=== PATIENT | male | born 1975 | race African-American/Black ===

== ENCOUNTER 2017-02-18 22:08 | Emergency (ER) | payer MEDICARE, OTHER ==
[2017-02-18 22:22] VITALS: BP 139/72; PULSE 79; RESP 18; TEMP 98.6
--- NOTE | 2017-02-18 22:45 | ED ---
Upper Extremity HPI - General Chief Complaint: Extremity Injury, Upper Stated Complaint: Swollen Hand Time Seen by Provider: 02/18/17 22:25 Source: patient, family, RN notes reviewed, old records reviewed Mode of arrival: ambulatory Limitations: no limitations - History of Present Illness Initial Comments: 41-year-old male presents with right wrist pain. Patient reports he noticed bumps deformity seen earlier today. He reports whenever flexes her son is resting feels a clicking sensation and feels a bump get worse. Patient states that if he pressed very has a shooting pain up his wrist. Patient denies any falls or trauma. Patient states that he has not no numbness or chilling to the fingers.Patient denies any recent fever, chills, shortness of breath, chest pain , back pain, abdominal pain, nausea vomiting, numbness or tingling, dysuria or hematuria, constipation or diarrhea, headaches or visual changes, or any other current symptoms - Related Data Home Medications Medication Instructions Recorded Confirmed Omeprazole [PriLOSEC] 20 mg PO AC-BRKFST 02/18/17 02/18/17 metFORMIN HCL [Glucophage Xr] 500 mg PO BID 02/18/17 02/18/17 Previous Rx's Medication Instructions Recorded Famotidine [Pepcid] 20 mg PO DAILY #14 tablet 05/29/16 Allergies Allergy/AdvReac Type Severity Reaction Status Date / Time No Known Allergies Allergy Verified 02/18/17 22:22 Review of Systems ROS Statement: Those systems with pertinent positive or pertinent negative responses have been documented in the HPI. ROS Other: All systems not noted in ROS Statement are negative. Past Medical History Past Medical History: Hypertension Additional Past Medical History / Comment(s): back pain, borderline diabetic, sleep apnea History of Any Multi-Drug Resistant Organisms: None Reported Past Surgical History: Orthopedic Surgery Past Psychological History: No Psychological Hx Reported Smoking Status: Never smoker Past Alcohol Use History: None Reported Past Drug Use History: None Reported General Exam - General Exam Comments Initial Comments: Well-appearing 41-year-old male. No distress. Limitations: no limitations General appearance: alert, in no apparent distress Head exam: Present: atraumatic, normocephalic, normal inspection Eye exam: Present: normal appearance, PERRL, EOMI. Absent: scleral icterus, conjunctival injection, periorbital swelling ENT exam: Present: normal exam, mucous membranes moist Neck exam: Present: normal inspection. Absent: tenderness, meningismus, lymphadenopathy Respiratory exam: Present: normal lung sounds bilaterally. Absent: respiratory distress, wheezes, rales, rhonchi, stridor Cardiovascular Exam: Present: regular rate, normal rhythm, normal heart sounds. Absent: systolic murmur, diastolic murmur, rubs, gallop, clicks GI/Abdominal exam: Present: soft Extremities exam: Present: normal inspection, full ROM, normal capillary refill. Absent: tenderness, pedal edema, joint swelling, calf tenderness Right Elbow exam: Present: normal inspection, full ROM Forearm Wrist exam: Present: normal inspection, full ROM Hand Wrist exam: Present: normal inspection, full ROM, tenderness (minor swelling and tenderness over right wrist ) Neuro motor exam: Present: wrist extension intact, thumb opposition intact, thumb IP flexion intact, thumb adduction intact, fingers 2-5 abduction intact Vascular: Present: normal capillary refill Right Upper Leg exam: Present: normal inspection, full ROM Knee exam: Present: normal inspection, full ROM Lower Leg exam: Present: normal inspection, full ROM Foot/Toe exam: Present: normal inspection Back exam: Present: full ROM Neurological exam: Present: alert, oriented X3, CN II-XII intact Psychiatric exam: Present: normal affect, normal mood Course Vital Signs 02/18/17 22:20 Temperature 98.6 F Pulse Rate 79 Respiratory 18 Rate Blood Pressure 139/72 O2 Sat by Pulse 99 Oximetry Medical Decision Making - Medical Decision Making 41-year-old male with a bump over his right wrist and some pain with flexion and extension. Patient reports that symptoms started one day ago. Denies any falls or trauma to the wrist. Patient has evidence of what appears to be again Lantus over the wrist. X-rays reviewed negative for any acute process. Patient will be given an Jnog wrap. Discussed follow-up with orthopedic physician. Patient history plan will comply. Return parameters were discussed. - Radiology Data Radiology results: report reviewed Wrist x-rays reviewed negative for any acute process. Disposition Clinical Impression: Ganglion cyst of dorsum of right wrist Disposition: HOME SELF-CARE Condition: Good Instructions: Ganglion Cysts (ED) Additional Instructions: Patient advised to take Motrin or Tylenol for pain. Apply ice over the wrist is much as possible. Wear the Jong wrap. Follow-up with orthopedic if symptoms continue to persist. Return to emergency department if any alarming signs or symptoms occur. Referrals: Nonstaff,Physician [Primary Care Provider] - 1-2 days Lm Ibarra DO [Doctor of Osteopathic Medicine] - 1-2 days Time of Disposition: 22:57
--- NOTE | 2017-02-18 23:20 | XR ---
EXAM: XR Right Wrist Complete, 3 or More Views CLINICAL HISTORY: Reason: Pain TECHNIQUE: Frontal, lateral and oblique views of the right wrist. COMPARISON: No relevant prior studies available. FINDINGS: Bones/joints: Mild degenerative changes are seen. No acute fracture. No dislocation. Soft tissues: Mild soft tissue swelling is seen overlying the dorsal aspect of the wrist. No radiopaque foreign body. IMPRESSION: Mild soft tissue swelling overlying the dorsal aspect of the wrist. No radiographic evidence of acute osseous injury. If occult fracture is suspected, radiographs of the wrist in 10-14 days may be obtained for follow-up.
== END 2017-02-18 23:08 | disposition home or self-care (01) ==
LOC: EC 22:08
DX: M67.431 Ganglion, right wrist (principal); Z79.84 Long term (current) use of oral hypoglycemic drugs; Z79.899 Other long term (current) drug therapy
CPT/HCPCS: 99284

== ENCOUNTER 2019-02-25 02:05 | Emergency (ER) | payer MEDICARE, OTHER ==
[2019-02-25 02:16] VITALS: BP 146/89; PULSE 74; RESP 18; TEMP 97.8
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
== END 2019-02-25 03:08 | disposition home or self-care (01) ==
LOC: EC 02:05
DX: G89.29 Other chronic pain (principal); M25.462 Effusion, left knee; G47.30 Sleep apnea, unspecified; Z91.018 Allergy to other foods; Z91.030 Bee allergy status; Z79.84 Long term (current) use of oral hypoglycemic drugs; Z79.899 Other long term (current) drug therapy; Z86.39 Personal history of other endocrine, nutritional and metabolic disease; Z87.39 Personal history of other diseases of the musculoskeletal system and connective tissue; Z99.89 Dependence on other enabling machines and devices
CPT/HCPCS: 99283

== ENCOUNTER 2020-02-17 12:11 | Emergency (ER) | payer MEDICARE, OTHER ==
[2020-02-17 12:25] VITALS: BP 137/89; PULSE 78; RESP 18; TEMP 98.4
[2020-02-17] MEDS ORDERED: HYDROcodone/APAP 10-325MG 1 EACH TAB PO ONE (12:31)
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
--- NOTE | 2020-02-17 13:29 | XR ---
EXAMINATION TYPE: XR knee complete LT DATE OF EXAM: 02/17/2020 CLINICAL HISTORY: Left knee pain since playing basketball yesterday. TECHNIQUE: AP, oblique, and crosstable lateral views of the left knee are obtained. COMPARISON: None. FINDINGS: There is no acute fracture/dislocation evident in left knee. There are severe osteophytic degenerative changes including severe tricompartmental osteophytosis, sclerosis of the femoral condy les and tibial plateau, medial compartment joint space narrowing, and mild subluxation medially of th e femoral condyles in relation to the tibia. There is normal osseous mineralization. The overlying so ft tissue appears unremarkable. IMPRESSION: 1. No acute fracture or dislocation in the left knee. 2. Severe tricompartmental osteoarthritis.
== END 2020-02-17 13:51 | disposition home or self-care (01) ==
LOC: EC 12:11
DX: S83.92XA Sprain of unspecified site of left knee, initial encounter (principal); G47.30 Sleep apnea, unspecified; R73.03 Prediabetes; Z99.89 Dependence on other enabling machines and devices; Z79.84 Long term (current) use of oral hypoglycemic drugs; Z91.030 Bee allergy status; Z91.018 Allergy to other foods; Z98.890 Other specified postprocedural states; X50.9XXA Other and unspecified overexertion or strenuous movements or postures, initial encounter; Y93.67 Activity, basketball; Y92.009 Unspecified place in unspecified non-institutional (private) residence as the place of occurrence of the external cause
CPT/HCPCS: 99283

== ENCOUNTER → 2020-04-30 | Outpatient (CLI) | payer MEDICARE, OTHER ==
[2020-04-30 11:51] LABS: Basophils # (A) 0.1 k/uL (0-0.2); Basophils % (A) 1 %; Eosinophils # (A) 0.3 k/uL (0-0.7); Eosinophils % (A) 4 %; HCT 46.5 % (39.0-53.0); HGB 15.2 gm/dL (13.0-17.5); Lymphocytes # (A) 2.1 k/uL (1.0-4.8); Lymphocytes % (A) 23 %; MCH 26.8 pg (25.0-35.0); MCHC 32.6 g/dL (31.0-37.0); MCV 82.1 fL (80.0-100.0); Mean Platelet Volume 7.2; Monocytes # (A) 0.4 k/uL (0-1.0); Monocytes % (A) 4 %; Neutrophils % (A) 68 %; Platelet Count 251 k/uL (150-450); RBC 5.66 m/uL (4.30-5.90); RDW 13.4 % (11.5-15.5)
[2020-04-30 14:52] LABS: African American GFR (CKD) 95.5 (60.0-200.0); Albumin 4.1 g/dL (3.80-4.90); Albumin/Globulin Ratio 1.78 (1.60-3.17); Anion Gap 10.4 mmol/L (4.00-12.00); Calcium 9.3 mg/dL (8.7-10.3); Carbon Dioxide 24.6 mmol/L (21.6-31.8); Chol/HDL Ratio 4.59; Globulin 2.3 g/dL (1.6-3.3); LDL Cholesterol,Calculated 134.2 mg/dL (0.0-131.0); Non-African American GFR(CKD) 82.4 (60.0-200.0); Potassium 4.1 mmol/L (3.5-5.5); Total Protein 6.4 g/dL (6.2-8.2); VLDL Calculation 23.8 mg/dL (5.00-40.00)
[2020-04-30 18:36] LABS: Hemoglobin A1C 9.4 % (4.0-6.0)
== END | disposition home or self-care (01) ==
LOC: LABWHC1 10:53
PROVIDERS: ATTEND Nurse Practitioner Adult Health
DX: Z00.00 Encounter for general adult medical examination without abnormal findings (principal); E11.69 Type 2 diabetes mellitus with other specified complication; I10 Essential (primary) hypertension; M25.569 Pain in unspecified knee
CPT/HCPCS: 36415; 80053; 80061; 82306; 83036; 84443; 85025

== ENCOUNTER → 2020-05-20 | Outpatient (CLI) | payer MEDICARE, OTHER ==
[2020-05-20 15:23] VITALS: BP 146/83; PULSE 81; RESP 18; TEMP 98.5; BMI 51.3
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
== END | disposition home or self-care (01) ==
LOC: BARWHC3 14:58
PROVIDERS: ATTEND Surgery Plastic and Reconstructive Surgery
DX: E66.8 Other obesity (principal); E11.9 Type 2 diabetes mellitus without complications; M54.5 Low back pain; M25.559 Pain in unspecified hip; M25.562 Pain in left knee; G47.30 Sleep apnea, unspecified; M25.561 Pain in right knee; Z68.43 Body mass index [BMI] 50.0-59.9, adult; Z79.4 Long term (current) use of insulin
CPT/HCPCS: 99211

== ENCOUNTER 2020-06-10 07:05 | Day surgery (SDC) | payer MEDICARE, OTHER ==
[2020-06-08 12:17] VITALS: BMI 47.5
[~2020-06-10 07:05] MED LIST: LACTATED RINGERS 1,000 ML IV SCH; LIDOCAINE 1% (10MG/ML) FOR IV START INTRADERMA PRN
[2020-06-10 07:31] VITALS: RESP 16; TEMP 97.5
[2020-06-10 07:36] LABS: Glucose,Whole Blood 139 mg/dL (75-99)
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
[2020-06-10] MEDS ORDERED: MIDAZOLAM 2 MG/2 ML VIAL ONE (07:51)
[2020-06-10] MEDS ORDERED: LIDOCAINE 1% INJ 10MG/ML (20 ML MDV) ONE (07:51)
[2020-06-10] MEDS ORDERED: PROPOFOL 10 MG/ML 20 ML VIAL IV ONE (07:51)
[2020-06-10] MEDS ORDERED: GLYCOPYRROLATE 0.2 MG/ML 2 ML VIAL ONE (07:51)
[2020-06-10] MEDS ORDERED: KETAMINE 10 MG/ML 20 ML VIAL ONE (07:51)
--- NOTE | 2020-06-10 08:15 | P.PCN ---
Date of Procedure: 06/10/20 Description of Procedure: PREOPERATIVE DIAGNOSIS: Gastroesophageal reflux disease. Morbid obesity. POSTOPERATIVE DIAGNOSIS: Morbid obesity. Gastritis. Gastroesophageal reflux disease with erosive esophagitis Diaphragmatic hiatal hernia OPERATION: Esophagogastroduodenoscopy with biopsies along antrum and gastroesophageal junction SURGEON: Ceci Ballard MD ANESTHESIA: MAC. INDICATIONS: The patient is a 44-year-old male who presents with a history of reflux disease. Benefits and risks of the procedure were described. Informed consent was obtained. DESCRIPTION: The patient was brought into the endoscopy suite and laid in the left lateral decubitus position. An Olympus gastroscope was passed along the posterior oropharynx down to the distal esophagus where the squamocolumnar junction was encountered at 40 cm from the incisors. The stomach was entered and no bile reflux was found. Additional findings are listed below. Biopsies with cold forceps were obtained of the antrum. The first through third portion of the duodenum was examined and unremarkable. Retroflexion of the scope confirmed Hill grade 3 lower esophageal valve. The squamocolumnar junction demonstrated LA grade C erosive esophagitis. The stomach was desufflated. The patient tolerated the procedure well. FINDINGS: Squamocolumnar junction 40 cm from the incisors. Diaphragmatic hiatus at 45 cm. Hiatal hernia, 5 cm Hill grade 3 lower esophageal valve. LA grade C erosive esophagitis. No active duodenitis. Chronic gastritis RECOMMENDATIONS: Repeat upper endoscopy 1 year. Start omeprazole 40 mg daily for erosive esophagitis Recommend repair of diaphragmatic hiatal hernia Plan - Discharge Summary Discharge Rx Participant: No New Discharge Prescriptions: New Omeprazole [PriLOSEC] 40 mg PO DAILY #14 cap Continue oxyCODONE-APAP 10-325MG [Percocet 10-325 mg] 1 tab PO BID Loratadine [Claritin] 10 mg PO DAILY Ergocalciferol [Vitamin D2 (DRISDOL)] 50,000 unit PO FR metFORMIN HCL [metFORMIN HCL ER] 750 mg PO DAILY glipiZIDE [Glucotrol] 5 mg PO DAILY buPROPion XL [Wellbutrin XL] 150 mg PO DAILY Lisinopril-Hctz 20-12.5 mg [Zestoretic 20-12.5] 1 tab PO DAILY Discharge Medication List Loratadine [Claritin] 10 mg PO DAILY 05/20/20 [History] oxyCODONE-APAP 10-325MG [Percocet 10-325 mg] 1 tab PO BID 05/20/20 [History] Ergocalciferol [Vitamin D2 (DRISDOL)] 50,000 unit PO FR 05/21/20 [History] Lisinopril-Hctz 20-12.5 mg [Zestoretic 20-12.5] 1 tab PO DAILY 06/08/20 [History] buPROPion XL [Wellbutrin XL] 150 mg PO DAILY 06/08/20 [History] glipiZIDE [Glucotrol] 5 mg PO DAILY 06/08/20 [History] metFORMIN HCL [metFORMIN HCL ER] 750 mg PO DAILY 06/08/20 [History] Omeprazole [PriLOSEC] 40 mg PO DAILY #14 cap 06/10/20 [Rx] Follow up Appointment(s)/Referral(s): Ceci Ballard MD [STAFF PHYSICIAN] - 06/24/20 Patient Instructions/Handouts: Hiatal Hernia (DC), Gastroesophageal Reflux Disease (DC) Discharge Disposition: HOME SELF-CARE
[2020-06-10 08:49] VITALS: BP 123/76; PULSE 77
== END 2020-06-10 09:27 | disposition home or self-care (01) ==
LOC: ORWHC2ENDO 07:05
PROVIDERS: ATTEND Surgery Plastic and Reconstructive Surgery
DX: K21.00 Gastro-esophageal reflux disease with esophagitis, without bleeding (principal); K22.10 Ulcer of esophagus without bleeding; K29.50 Unspecified chronic gastritis without bleeding; K44.9 Diaphragmatic hernia without obstruction or gangrene; E66.01 Morbid (severe) obesity due to excess calories; I10 Essential (primary) hypertension; E11.9 Type 2 diabetes mellitus without complications; G47.33 Obstructive sleep apnea (adult) (pediatric); F32.9 Major depressive disorder, single episode, unspecified; M19.90 Unspecified osteoarthritis, unspecified site; Z79.84 Long term (current) use of oral hypoglycemic drugs; Z79.899 Other long term (current) drug therapy; Z98.890 Other specified postprocedural states; Z99.89 Dependence on other enabling machines and devices; Z68.42 Body mass index [BMI] 45.0-49.9, adult; Z91.018 Allergy to other foods; Z91.030 Bee allergy status
CPT/HCPCS: 88305; 43239; J2250; J2001; J2704

== ENCOUNTER → 2020-08-12 | Outpatient (CLI) | payer MEDICARE, OTHER ==
[2020-08-12 13:37] VITALS: BP 154/82; PULSE 92; RESP 16; TEMP 98.3; BMI 50.4
--- NOTE | 2020-08-12 14:40 | P.PN ---
Subjective Progress Note Date: 08/12/20 DATE OF SERVICE: 08/12/2020 CHIEF COMPLAINT: Morbid obesity HISTORY OF PRESENT ILLNESS: John Gr is a 45-year-old male who comes with lifelong morbid obesity. He is looking into the gastric bypass. As a result of his morbid obesity, he has developed osteoarthritis of the lower back, hips, and knees including obstructive sleep apnea and insulin dependent diabetes. He comes in with weight loss. He reports improvement of his last Hgb A1c from 9.1 to 8.0. He has completed an upper scope and presents on follow-up. At height of 6 feet 0 inches, ideal body weight is 183 pounds. His highest weight is 480 pounds, BMI 65.2 He comes in 371 pounds from 378 pounds, 2 months ago. He has lost 7 pounds in 2 months. Body mass index is 50.5. He is 188 pounds overweight. PAST MEDICAL HISTORY: 1. Morbid obesity due to excess calories 2. Body mass index of 65.2, initial 3. Osteoarthritis of the knees. 4. Osteoarthritis of the lower back. 5. Hypertensive heart disease. 6. Obstructive sleep apnea 7. Diabetes type 2, insulin dependent 8. Gastroesophageal reflux disease 9. Osteoarthritis of the hips 10. Depressive disorder PAST SURGICAL HISTORY: 1. Denies abdominal surgery HOME MEDICATIONS: Home Medications Medication Instructions Recorded Confirmed Loratadine [Claritin] 10 mg PO DAILY 05/20/20 06/08/20 oxyCODONE-APAP 10-325MG [Percocet 1 tab PO BID 05/20/20 06/08/20 10-325 mg] Ergocalciferol [Vitamin D2 50,000 unit PO FR 05/21/20 06/08/20 (DRISDOL)] Lisinopril-Hctz 20-12.5 mg 1 tab PO DAILY 06/08/20 06/08/20 [Zestoretic 20-12.5] buPROPion XL [Wellbutrin XL] 150 mg PO DAILY 06/08/20 06/08/20 glipiZIDE [Glucotrol] 5 mg PO DAILY 06/08/20 06/08/20 metFORMIN HCL [metFORMIN HCL ER] 750 mg PO DAILY 06/08/20 06/08/20 Previous Rx's Medication Instructions Recorded Omeprazole [PriLOSEC] 40 mg PO DAILY #14 cap 06/10/20 ALLERGIES: Allergies Allergy/AdvReac Type Severity Reaction Status Date / Time bee venom protein (honey bee) Allergy Anaphylaxis Verified 06/08/20 12:18 cabbage Allergy Anaphylaxis Verified 06/08/20 12:18 Mushroom Allergy Anaphylaxis Verified 06/08/20 12:18 mustard Allergy Anaphylaxis Verified 06/08/20 12:18 onion Allergy Anaphylaxis Verified 06/08/20 12:18 Pepper Allergy Anaphylaxis Verified 06/10/20 07:22 SOCIAL HISTORY: Denies past tobacco use. FAMILY HISTORY: No family history of ulcerative colitis disease or Crohn's disease. Family history of morbid obesity. No lupus in the family. No reports of stomach or esophageal cancer. REVIEW OF ORGAN SYSTEMS: CONSTITUTIONAL: At height of 6 feet 0 inches, ideal body weight is 183 pounds. His highest weight is 480 pounds, BMI 65.2 He comes in 378 pounds. Body mass index is 51.3. He is 195 pounds overweight. HEENT: Denies any active troubles with vision or hearing. Has troubles with swallowing. ENDOCRINE: Has diabetes. No hypothyroidism. CARDIOVASCULAR: Past reports of palpitations or heart attacks or chest pain. Has hypertensive heart disease. RESPIRATORY: Has daytime somnolence. Has sleep apnea. GASTROINTESTINAL: Denies any bright red blood per rectum. No diarrhea. No constipation. MUSCULOSKELETAL: Has lower back pain and joint pain. Has osteoarthritis of the knees and back. Has chronic pain. NEURO: No headaches. No seizure disorders. PSYCH: Has depression. No suicidal ideation. RHEUMATOLOGIC: No lupus. No rheumatoid arthritis. HEMATOLOGIC: Denies any abnormal bleeding or bruising. No personal history of DVTs. SKIN: No rash. No skin cancer. PHYSICAL EXAM: VITAL SIGNS: Height 6 foot 0 inches, weight 371 pounds. BMI 50.5 Vital Signs Temp 98.3 F 08/12/20 13:35 Pulse 92 08/12/20 13:35 Resp 16 08/12/20 13:35 BP 154/82 08/12/20 13:35 Pulse Ox GENERAL: Well-developed in no acute distress. HEENT: No scleral icterus. Extraocular movements grossly intact. Hears conversational speech. No nasal drainage. NECK: Supple without lymphadenopathy. CHEST: Nonlabored respirations with equal bilateral excursions. CARDIOVASCULAR: Regular rate and regular rhythm. Distal 2+ pulses. ABDOMEN: Obese, soft, nontender, nondistended. MUSCULOSKELETAL: No clubbing, cyanosis. NEURO: No focal or lateralizing signs. Cranial nerves 2 through 12 grossly within normal limits. PSYCH: Appropriate affect. Alert and oriented to person, place and time. SKIN: Good skin turgor. Well perfused. LABS: MCHC and MCH low, Hgb A1c elevated 8.0, Total protein low 6.1, Vitamin A low, Vitamin D low, Ferritin is high. EGD FINDINGS: Squamocolumnar junction 40 cm from the incisors. Diaphragmatic hiatus at 45 cm. Hiatal hernia, 5 cm Hill grade 3 lower esophageal valve. LA grade C erosive esophagitis. No active duodenitis. Chronic gastritis Final Pathologic Diagnosis A. STOMACH, BIOPSY: Mature gastric antral mucosa. Helicobacter pylori organisms are not identified on routine H+E sections. B. ESOPHAGUS, BIOSPY: Small fragment of esophageal squamous mucosa plus bits of metaplastic intestinal type epithelium with numerous goblet cells consistent with Barretts mucosa, negative for dysplasia. ASSESSMENT: 1. Morbid obesity due to excess calories 2. Body mass index of 65.2, initial 3. Osteoarthritis of the knees. 4. Osteoarthritis of the lower back. 5. Hypertensive heart disease. 6. Obstructive sleep apnea 7. Diabetes type 2, insulin dependent 8. Gastroesophageal reflux disease 9. Osteoarthritis of the hips 10. Hiatal hernia 11. Vitamin D deficiency 12. Vitamin A deficiency 13. Perez's esophagus Depressive disorder PLAN: 1. Recommend EKG for cardiac risk assessment 2. Recommend esophogram for further work-up of fixed versus sliding hiatal hernia 3. Vitamin D level is low with prescription of 50,000 units weekly. 4. Psychology assessment is completed where he demonstrates understanding of bariatric lifestyle changes. 5. He is pending full cardiac risk assessment. 6. Recommend evaluation and treatment for untreated obstructive sleep apnea. Objective - Vital Signs Vital signs: Vital Signs Temp 98.3 F 08/12/20 13:35 Pulse 92 08/12/20 13:35 Resp 16 08/12/20 13:35 BP 154/82 08/12/20 13:35 Pulse Ox Intake & Output 08/11/20 08/12/20 08/12/20 18:59 06:59 18:59 Weight 168.736 kg
== END | disposition home or self-care (01) ==
LOC: BARWHC3 13:17
PROVIDERS: ATTEND Surgery Plastic and Reconstructive Surgery
DX: E66.01 Morbid (severe) obesity due to excess calories (principal); E11.9 Type 2 diabetes mellitus without complications; E55.9 Vitamin D deficiency, unspecified; F32.9 Major depressive disorder, single episode, unspecified; G47.33 Obstructive sleep apnea (adult) (pediatric); I11.9 Hypertensive heart disease without heart failure; K21.9 Gastro-esophageal reflux disease without esophagitis; K22.70 Barrett's esophagus without dysplasia; K44.9 Diaphragmatic hernia without obstruction or gangrene; M16.0 Bilateral primary osteoarthritis of hip; M17.0 Bilateral primary osteoarthritis of knee; Z68.44 Body mass index [BMI] 60.0-69.9, adult; Z79.4 Long term (current) use of insulin; Z98.84 Bariatric surgery status; E50.9 Vitamin A deficiency, unspecified
CPT/HCPCS: 99211

== ENCOUNTER → 2020-09-04 | Outpatient (CLI) | payer MEDICARE, OTHER ==
--- NOTE | 2020-09-04 11:04 | FL ---
EXAMINATION TYPE: FL barium swallow DATE OF EXAM: 09/04/2020 CLINICAL HISTORY: Dysphagia, reflux-like symptoms. Some improvement of symptoms on antireflux medicat ion per patient. TECHNIQUE: A double contrast esophagram is performed utilizing air and barium. A total of 13 second s of fluoroscopic time was utilized during procedure and 40 images obtained COMPARISON: None FINDINGS: The esophagus shows satisfactory motility and emptying into the stomach. No esophageal dive rticulum. No evidence of fixed hiatal hernia or stricture noted. Tiny sliding hiatal hernia seen at e nd of study. No significant gastroesophageal reflux was seen during real time performance of this regina dy. IMPRESSION: No significant abnormality is seen to account for patient's symptoms.
== END ==
LOC: RADUSWWP 10:01
PROVIDERS: ATTEND Surgery Plastic and Reconstructive Surgery
DX: R13.10 Dysphagia, unspecified (principal)
CPT/HCPCS: 74220

== ENCOUNTER → 2021-02-24 | Outpatient (CLI) | payer MEDICARE, OTHER | END | disposition home or self-care (01) | LOC: LABWHC1 11:05 | PROVIDERS: ATTEND Surgery Plastic and Reconstructive Surgery | DX: E66.01 Morbid (severe) obesity due to excess calories (principal) | CPT/HCPCS: 36415; 93005 ==

== ENCOUNTER 2021-04-06 02:21 | Emergency (ER) | payer MEDICARE, OTHER ==
[2021-04-06 02:28] VITALS: BP 172/87; PULSE 86; RESP 18; TEMP 97.8
[2021-04-06] MEDS ORDERED: SULFAMETH-TMP DS STARTER PACK 2 TAB BTL PO STA (02:59)
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
== END 2021-04-06 03:04 | disposition home or self-care (01) ==
LOC: EC 02:21
DX: N61.1 Abscess of the breast and nipple (principal); I10 Essential (primary) hypertension; E11.9 Type 2 diabetes mellitus without complications; Z79.84 Long term (current) use of oral hypoglycemic drugs
CPT/HCPCS: 10060; 99284

== ENCOUNTER → 2021-05-24 | Outpatient (CLI) | payer MEDICARE, OTHER ==
[2021-05-24 14:08] VITALS: BMI 54.2
== END ==
LOC: BARWHC3 08:51
PROVIDERS: ATTEND Surgery Plastic and Reconstructive Surgery
DX: E66.01 Morbid (severe) obesity due to excess calories (principal); Z71.3 Dietary counseling and surveillance; Z68.43 Body mass index [BMI] 50.0-59.9, adult; Z91.030 Bee allergy status; Z91.018 Allergy to other foods
CPT/HCPCS: 97804

== ENCOUNTER → 2021-06-15 | Outpatient (CLI) | payer MEDICARE, OTHER ==
[2021-06-15 12:18] LABS: Basophils # (A) 0.1 k/uL (0-0.2); Basophils % (A) 1 %; Eosinophils # (A) 0.3 k/uL (0-0.7); Eosinophils % (A) 4 %; HCT 45.9 % (39.0-53.0); HGB 14.6 gm/dL (13.0-17.5); Lymphocytes % (A) 26 %; MCH 26.4 pg (25.0-35.0); MCHC 31.7 g/dL (31.0-37.0); MCV 83.4 fL (80.0-100.0); Mean Platelet Volume 7.1; Monocytes # (A) 0.4 k/uL (0-1.0); Monocytes % (A) 5 %; Neutrophils # (A) 4.8 k/uL (1.3-7.7); Neutrophils % (A) 63 %; Platelet Count 238 k/uL (150-450); RDW 13.9 % (11.5-15.5); WBC 7.6 k/uL (3.8-10.6)
[2021-06-15 12:42] LABS: ALT 66 U/L (4-49); AST 47 U/L (17-59); African American GFR (CKD) >90 (>60 ml/min/1.73 sqM); Albumin 4.2 g/dL (3.5-5.0); Alkaline Phosphatase 55 U/L (38-126); Anion Gap 8 mmol/L; Blood Urea Nitrogen 12 mg/dL (9-20); Calcium 9.4 mg/dL (8.4-10.2); Carbon Dioxide 24 mmol/L (22-30); Chloride 106 mmol/L (98-107); Glucose 108 mg/dL (74-99); Non-African American GFR(CKD) 87 (>60 ml/min/1.73 sqM); Potassium 4.1 mmol/L (3.5-5.1); Sodium 138 mmol/L (137-145); Total Bilirubin 1.4 mg/dL (0.2-1.3); Total Protein 7.1 g/dL (6.3-8.2)
== END | disposition home or self-care (01) ==
LOC: LABPAT 11:05
PROVIDERS: ATTEND Surgery Plastic and Reconstructive Surgery
DX: Z01.812 Encounter for preprocedural laboratory examination (principal)
CPT/HCPCS: 36415; 80053; 85025

== ENCOUNTER 2021-06-16 11:19 | Inpatient (IN) | payer MEDICARE, OTHER ==
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
[~2021-06-16 11:19] MED LIST changes: +ACETAMINOPHEN TAB 500 MG TAB PO STA; +CHLORHEXIDINE GLUCONATE 15 ML CUP MUCOUS MEM PRN; +DEXAMETHASONE SOD PHOSPHATE 4 MG/ML 1 ML VIAL IV ONE; +ENOXAPARIN 40 MG/0.4 ML SYRINGE SQ PRN; +GABAPENTIN 300 MG CAP PO STA; +HYDROmorphone 0.5 MG/0.5 ML SYRINGE IVP PRN; -LACTATED RINGERS 1,000 ML IV SCH; +ONDANSETRON 4 MG/2 ML VIAL IVP PRN; +PANTOPRAZOLE 40 MG/10 ML VIAL IVP PRN; +SCOPOLAMINE 1.5MG/72HR PATCH TRANSDERM ONE; +ceFAZolin 3 GM in SODIUM CHLORIDE 0.9% 100 ML IVPB PRN
[2021-06-16] MEDS: LACTATED RINGERS 1,000 ML IV SCH (12:10)
--- NOTE | 2021-06-16 12:15 | P.HPADDEND ---
H&P Addendum H&P Addendum Date: 06/16/21 Patient seen and evaluated. Options for gastric sleeve described in extenuating circumstances of severe intra-abdominal adhesions requiring lysis of adhesions with deferred gastric bypass versus sleeve gastrectomy. Patient opted for sleeve gastrectomy if gastric bypass was not feasible. Patient has lost over 11 pounds on his 2 week high protein low carbohydrate
[2021-06-16 12:24] LABS: Glucose,Whole Blood 85 mg/dL (75-99)
[2021-06-16] MEDS ORDERED: NEOSTIGMINE 1 MG/ML 10 ML VIAL ONE (14:36)
[2021-06-16] MEDS ORDERED: fentaNYL (PF) 50 MCG/ML 2 ML AMP ONE (14:36)
[2021-06-16] MEDS ORDERED: MIDAZOLAM 2 MG/2 ML VIAL ONE (14:36)
[2021-06-16] MEDS ORDERED: PROPOFOL 10 MG/ML 20 ML VIAL IV ONE (14:36)
[2021-06-16] MEDS ORDERED: SUCCINYLCHOLINE CHLORIDE VIAL 200 MG/10 ML VIAL IV ONE (14:36)
[2021-06-16] MEDS ORDERED: ROCURONIUM 10 MG/ML (5 ML VIAL) IV ONE (14:36)
[2021-06-16] MEDS ORDERED: GLYCOPYRROLATE 0.2 MG/ML 2 ML VIAL ONE (14:36)
[2021-06-16] MEDS ORDERED: LIDOCAINE 1% INJ 10MG/ML (20 ML MDV) ONE (14:36)
[2021-06-16] MEDS ORDERED: BUPIVACAIN-EPI 0.25%-1:200,000 30 ML VIAL SQ ONE (15:19)
[2021-06-16] MEDS ORDERED: LACTATED RINGERS 1,000 ML IV ONE ×3 (15:22→19:24)
[2021-06-16] MEDS ORDERED: NALOXONE 0.4 MG/ML 1 ML VIAL IV PRN (18:35)
[2021-06-16] MEDS ORDERED: HYDROmorphone 1 MG/ML 1 ML SYRINGE IVP PRN (18:35)
[2021-06-16] MEDS ORDERED: diphenhydrAMINE 50 MG/ML 1 ML VIAL IVP PRN (18:35)
--- NOTE | 2021-06-16 18:35 | P.OP ---
Date of Procedure: 06/16/21 Description of Procedure: SURGEON: RIA JORDAN MD PREOPERATIVE DIAGNOSES: 1. Morbid obesity due to excess calories 2. Body mass index of 65.2, initial 3. Osteoarthritis of the knees. 4. Osteoarthritis of the lower back. 5. Hypertensive heart disease. 6. Obstructive sleep apnea 7. Diabetes type 2, insulin dependent 8. Gastroesophageal reflux disease 9. Osteoarthritis of the hips 10. Depressive disorder POSTOPERATIVE DIAGNOSES: 1. Morbid obesity due to excess calories 2. Body mass index of 65.2, initial 3. Osteoarthritis of the knees. 4. Osteoarthritis of the lower back. 5. Hypertensive heart disease. 6. Obstructive sleep apnea 7. Diabetes type 2, insulin dependent 8. Gastroesophageal reflux disease 9. Osteoarthritis of the hips 10. Depressive disorder 11. Hepatomegaly 12. Fatty liver disease OPERATION: 1. Robotic assisted da Lisa Xi laparoscopic Dyllan-en-Y gastric bypass, 100 cm antecolic antegastric Dyllan limb, with 25 mm EEA. 2. Intraoperative esophagogastrojejunoscopy. ANESTHESIA: GETA and local ESTIMATED BLOOD LOSS: 5 mL SPECIMENS REMOVED: None. COMPLICATIONS: NONE. Operative Findings: 1. Biliopancreatic limb 60 cm 2. Bypass performed using 100 cm dyllan limb secondary to avoid increased tension at 150 cm. 3. Jejunojejunostomy and Gilliam's defects closed using 2-0 V-LOC, green 4. Leak test negative with gastrojejunal anastomosis patent and hemostatic. 5. Reinforcement sutures were placed along the gastrojejunal anastomosis at 9:00 and 3:00 and 12:00. 6. Mild gastrojejunal ooze flushed with saline. INDICATIONS: John Gr is a 45-year-old male who comes with lifelong morbid obesity. He is looking into the gastric bypass. As a result of his morbid obesity, he has developed osteoarthritis of the lower back, hips, and knees including obstructive sleep apnea and insulin dependent diabetes type 2. At height of 6 feet 0 inches, ideal body weight is 183 pounds. His highest weight is 480 pounds, BMI 65.2 He comes in 382 pounds from 393 pounds, 2 weeks ago. He comes in with BMI 52.0. He is 200 pounds overweight. A second-generation bariatric consent form was described in detail including the possibility of protein malnutrition, leaks, gastrointestinal bleeding with hematemesis, gastrojejunal stricture, venous thrombosis, need for further surgery for which she demonstrated understanding. Benefits and risks of the procedure were described at length. Informed consent was obtained. DESCRIPTION: The patient was brought into the operating room theater. The patient was placed supine. The patient received Lovenox subcutaneously for DVT prophylaxis. Additionally Peridex oral solution as an oral decontaminant was administered.. After general induction, the abdomen was prepped and draped in standard sterile fashion. Ioban draping was placed along the abdomen. Diez catheter was placed and removed for the end of the case. A robotic da Lisa Xi system was prepped and primed. Incisions were proposed at 15 cm from the xiphoid. Proposed port sites were marked with indelible marker along the anterior axillary line bilaterally, mid clavicular line bilaterally with each port marked 10 cm from each other. The robotic stapler port was marked for the right midclavicular line including along the left midclavicular line. A 5 mm 0 degrees laparoscopic trocar entry was performed along the left upper quadrant. The abdomen was insufflated to 15 mmHg pressure, which was tolerated well. Diagnostic laparoscopy demonstrated no injury to bowel, viscera, or mesentery. The liver was consistent with 2-week protein diet. Presence of mild hepatomegaly and fatty liver disease was found. An 8 mm camera port was placed left lateral to the umbilicus at the epigastrium, 15 cm distal to the xiphoid. Next, 12-mm robot stapler port was placed along the right mid abdomen. An 12 mm port was exchanged along the left upper quadrant. An 8 mm port was placed on the left lateral abdominal wall under direct visualization Please note that the ports were placed 18 to 20 cm away from the target anatomy of the stomach. Care was taken to check that each robotic arm was safely away from collision with the bed or the patient. At the epigastrium, a medium sized Garrett liver retractor was placed under direct visualization with the Iron Elevator Worker placed under the right shoulder of the patient. The patient was repositioned in reverse Trendelenburg position at 21-degrees after lowering the bed. The robot was docked over the patient. Using grasper for arm 3, a grasper for arm 1, including vessel sealer for arm 4, the robotic system was docked and primed as described. Instruments were interchanged by the real estate executive assistant including endoscissors, the needle garbage truck driver, and stapler. I had sat at the console. Next, the transverse mesocolon was reflected into the upper abdomen after dividing the mesentery and preparing for the jejunojejunostomy portion of the case. The ligament of Treitz was identified and measured 60 cm antegrade and marked using 3-0 Silk. The jejunum was divided at the 60 cm point using 60-mm blue loads above the suture measurement. The biliopancreatic limb was held in place. The Dyllan limb was measured 100 cm in an antegrade fashion to avoid tension along the proposed gastrojejunal anastomosis. At 100 cm along the anti-mesenteric border of the Dyllan limb, a jejunojejunostomy was proposed whereby enterotomies were created along the biliopancreatic limb including the Dyllan limb using a Bovie cautery. A stay suture of 3-0 Slik was placed to align and create the anastomosis. The enterotomies along the anti- mesenteric borders were created followed by unidirectional fire from the patien t's right side using 60 mm blue loads Smart technology robotic stapler. The jejunojejunostomy was found to be hemostatic. The enterotomy was closed after horizontal mattress stitch of 3-0 silk used to elevate the enterotomy followed by closure with the robotic stapler blue load. The jejunal limb was temporarily tacked along the left upper quadrant. Attention was now brought to the creation of the gastrojejunostomy. Along the lesser curvature of the stomach, dissection was made along the retrogastric space to allow first firing of the robotic staple. Green loads and blue loads of 60 mm staplers were used to divide the stomach to create the gastric pouch. The patient was then prepared for placement of a Orvil. The patient was Mallampati 3. A 25-mm Orvil was selected for placement by the nurse commander police reserves. The Orvil tubing was placed anterior to the staple line of the gastric pouch and brought out through the left inferior lateral port. I re-scrubbed into the case. The robotic arms were temporarily undocked. The Orvil was then carefully and successfully navigated with the help of the nurse commander police reserves into the gastric pouch. The sutures were identified and divided. The tubing was from the 25 mm anvil. As the Orvil had been placed, the jejunal limb was brought proximally into the upper abdomen. No torsion was found upon the Dyllan limb. No tension was identified as the limb was brought along the upper abdomen. The jejunal limb was previously opened using endo- scissors with cautery. The 25-mm EEA stapler was brought through the left anterior lateral port site from the left side. The EEA stapler was brought through the open jejunal limb and its needle was deployed at the antimesenteric border where the anvil were mated for approximately 1 minute upon firing. The stapler was removed after irrigating the shaft of the instrument with warm normal saline. Donuts were found to be intact and on both sides. The [facility] robot arms were then re-docked. I sat at the console. The open jejunal limb defect was closed using 60 mm blue loads after releasing any tension from the blind jejunal limb. No redundancy was present for a long blind jejunal limb. Reinforcement sutures were placed along the gastrojejunal anastomosis and placed along the 9:00, 12:00 and 3 o'clock position using 3-0 Vicryl. The Gilliam and jejunojejunostomy mesenteric defect was closed using 2-0 V LO green suture. I then went to the head of the bed to perform the esophagogastrojejunoscopy and a leak test. An Olympus gastroscope was passed alongthe posterior oropharynx which was unremarkable for any injury to the vocal cords. The scope was passed down to the proximal portion of the pouch, whereby mild oozing along the anastomosis was washed and irrigated with 100 mL of normal saline. Excellent visualization of the gastrojejunostomy anastomosis, including the Dyllan limb was encountered with endoscopic image obtained. The anastomosis was found to be patent and resolved bleeding. Residual blood was suctioned from the gastric pouch. The gastrointestinal tract was desufflated. No evidence of intraoperative leak was encountered as the gastric pouch and anastomosis were submerged under normal saline solution. The robot was then undocked. I then went back to the bedside of the patient, whereby with coordinated effort of the real estate executive assistant, irrigation was aspirated from the upper abdominal cavity. Tisseel was placed circumferentially over the anastomosis of the gastrojejunostomy. The fascial defect of the EEA stapler was closed using Joby Greer and 0 Vicryl. All instruments and pneumoperitoneum were evacuated from the abdominal cavity. The port correlating with the EEA stapler device was cleansed with normal saline solution and hydrogen peroxide. The rest of incisions were reapproximated using 4-0 Monocryl in an interrupted subcuticular fashion. Local anesthetic was infiltrated along the skin for postop analgesia. Liquid glue was applied to the skin. OptiFoam dressing was placed along the EEA stapler site. At the end of the procedure, needle, sponge and instrument count had been verified correct by the surgical resident. The patient had tolerated the procedure well and was extubated and taken to the postanesthesia unit in stable condition. Post-operative expectations including risk of bleeding, hematemesis and blood in stools were reviewed with the patient and family.
[2021-06-16] MEDS ORDERED: TRIMETHOBENZAMIDE 100 MG/ML 2 ML VIAL IM PRN (18:38)
[2021-06-16 20:06] LABS: Glucose,Whole Blood 177 mg/dL (75-99)
[2021-06-16] MEDS: PANTOPRAZOLE 40 MG/10 ML VIAL IV SCH (21:44)
[2021-06-16] MEDS: 0.9% NACL WITH KCL 20 MEQ/L 1,000 ML IV SCH (21:45)
[2021-06-16] MEDS: ceFAZolin 3 GM in SODIUM CHLORIDE 0.9% 100 ML IVPB SCH (21:45)
[2021-06-16] MEDS: ALBUTEROL NEBULIZED 2.5 MG/3 ML INHALATION SCH (22:32)
[2021-06-17] MEDS: ONDANSETRON 4 MG/2 ML VIAL IVP SCH ×3 (00:06→12:46)
[2021-06-17] MEDS: ACETAMINOPHEN IV (For NPO) 1,000 MG in EMPTY BAG 1 BAG IVPB SCH ×3 (00:06→12:46)
[2021-06-17 00:07] LABS: Glucose,Whole Blood 181 mg/dL (75-99)
[2021-06-17] MEDS: SIMETHICONE 40 MG/0.6 ML DROPS 2,000 MG/30 ML BOTTLE PO SCH ×3 (00:07→12:47)
[2021-06-17] MEDS: METOCLOPRAMIDE 5 MG/ML 2 ML VIAL IVP SCH ×3 (00:07→12:46)
[2021-06-17] MEDS: INSULIN ASPART (NovoLOG) 100 UNIT/ML VIAL SQ SCH ×3 (00:08→12:05)
[2021-06-17] MEDS: 0.9% NACL WITH KCL 20 MEQ/L 1,000 ML IV SCH ×3 (01:34→14:19)
[2021-06-17 05:42] LABS: Glucose,Whole Blood 164 mg/dL (75-99)
[2021-06-17] MEDS: ALBUTEROL NEBULIZED 2.5 MG/3 ML INHALATION SCH ×2 (08:21→11:42)
[2021-06-17] MEDS ORDERED: LISINOPRIL-HCTZ 20-12.5 MG 1 EACH TAB PO SCH (09:00)
[2021-06-17] MEDS ORDERED: ENOXAPARIN 30 MG/0.3 ML SYRINGE SQ SCH (09:00)
[2021-06-17 09:02] LABS: Basophils # (A) 0.02 X 10*3/uL (0.00-0.10); Basophils % (A) 0.1 %; Eosinophils # (A) 0 X 10*3/uL (0.04-0.35); Eosinophils % (A) 0 %; HCT 37.5 % (39.6-50.0); HGB 12.2 g/dL (13.0-17.0); Lymphocytes # (A) 1.26 X 10*3/uL (0.90-5.00); Lymphocytes % (A) 7.8 %; MCH 26.2 pg (27.0-32.0); MCHC 32.5 g/dL (32.0-37.0); MCV 80.5 fL (80.0-97.0); Mean Platelet Volume 10.3 fL (9.5-12.2); Neutrophils # (A) 13.94 X 10*3/uL (1.80-7.70); Neutrophils % (A) 86.7 %; Platelet Count 239 X 10*3/uL (140-440); RBC 4.66 X 10*6/uL (4.40-5.60); RDW 13.7 % (11.5-14.5); WBC 16.09 X 10*3/uL (4.50-10.00)
[2021-06-17] MEDS: ceFAZolin 3 GM in SODIUM CHLORIDE 0.9% 100 ML IVPB SCH (09:04)
[2021-06-17] MEDS: PANTOPRAZOLE 40 MG/10 ML VIAL IV SCH (09:41)
[2021-06-17] MEDS: LACTATED RINGERS 1,000 ML IV SCH (09:42)
[2021-06-17 09:52] LABS: African American GFR (CKD) 90.8 (60.0-200.0); Anion Gap 13.2 mmol/L (10.00-18.00); Blood Urea Nitrogen 13.2 mg/dL (9.0-27.0); Calcium 8.3 mg/dL (8.7-10.3); Non-African American GFR(CKD) 78.3 (60.0-200.0); Phosphorus 3.3 mg/dL (2.4-5.1); Potassium 4.2 mmol/L (3.5-5.5)
[2021-06-17 11:51] VITALS: BMI 52.0
[2021-06-17 12:02] LABS: Glucose,Whole Blood 168 mg/dL (75-99)
--- NOTE | 2021-06-17 14:30 | P.DS ---
Providers Date of admission: 06/16/21 11:19 Expected date of discharge: 06/17/21 Attending physician: Ceci Ballard Primary care physician: Marie Buchanan [facility] Hospital Course: CHIEF COMPLAINT: Morbid obesity HISTORY OF PRESENT ILLNESS: John Gr is a 45-year-old male status post gastric bypass 06/16/2021. He is passing flatus. No hematemesis. No nausea. No vomiting. He is tolerating diet. Denies any moderate abdominal pain. He is ambulating. REVIEW OF ORGAN SYSTEMS: No fevers or chills. No chest pain. PHYSICAL EXAM: VITAL SIGNS: Reviewed. GENERAL: Well-developed in no acute distress. HEENT: No scleral icterus. Extraocular movements grossly intact. Hears conversational speech. No nasal drainage. NECK: Supple without lymphadenopathy. CHEST: Nonlabored respirations with equal bilateral excursions. CARDIOVASCULAR: Regular rate and regular rhythm. Distal 2+ pulses. ABDOMEN: Dressing clean dry and intact. MUSCULOSKELETAL: No clubbing, cyanosis. NEURO: No focal or lateralizing signs. Cranial nerves 2 through 12 grossly within normal limits. PSYCH: Appropriate affect. Alert and oriented to person, place and time. SKIN: Good skin turgor. Well perfused. ASSESSMENT: 1. Morbid obesity due to excess calories 2. Body mass index of 65.2, initial 3. Osteoarthritis of the knees. 4. Osteoarthritis of the lower back. 5. Hypertensive heart disease. 6. Obstructive sleep apnea 7. Diabetes type 2, insulin dependent 8. Gastroesophageal reflux disease 9. Osteoarthritis of the hips 10. Depressive disorder 11. Status post gastric bypass PLAN: 1. Patient may be discharged home with follow up in the bariatric Center in 24 hours. Patient Condition at Discharge: Stable Plan - Discharge Summary Discharge Rx Participant: Yes New Discharge Prescriptions: New Ondansetron Odt [Zofran Odt] 4 mg PO Q8HR PRN #9 tab PRN Reason: Nausea bisacodyL [Dulcolax] 5 mg PO DAILY PRN #10 tab PRN Reason: Constipation Simethicone 40 mg/0.6 ml Drops [Mylicon Drops] 40 mg PO PCHS PRN #30 ml PRN Reason: Gas Omeprazole [PriLOSEC] 40 mg PO DAILY #30 cap Acetaminophen Tab [Tylenol Tab] 1,000 mg PO Q6HR PRN #30 tablet PRN Reason: Pain Continue oxyCODONE-APAP 10-325MG [Percocet 10-325 mg] 1 tab PO TID Loratadine [Claritin] 10 mg PO DAILY metFORMIN HCL [Glucophage XR] 750 mg PO DAILY glipiZIDE [Glucotrol] 5 mg PO DAILY Lisinopril-Hctz 20-12.5 mg [Zestoretic 20-12.5] 1 tab PO DAILY Omeprazole [PriLOSEC] 40 mg PO DAILY #14 cap Ergocalciferol [Vitamin D2 (1250 Mcg = 38041 Iu)] 1,250 mcg PO FR Atorvastatin [Lipitor] 40 mg PO DAILY Discharge Medication List Loratadine [Claritin] 10 mg PO DAILY 05/20/20 [History] oxyCODONE-APAP 10-325MG [Percocet 10-325 mg] 1 tab PO TID 05/20/20 [History] Lisinopril-Hctz 20-12.5 mg [Zestoretic 20-12.5] 1 tab PO DAILY 06/08/20 [History] glipiZIDE [Glucotrol] 5 mg PO DAILY 06/08/20 [History] metFORMIN HCL [Glucophage XR] 750 mg PO DAILY 06/08/20 [History] Omeprazole [PriLOSEC] 40 mg PO DAILY #14 cap 06/10/20 [Rx] Atorvastatin [Lipitor] 40 mg PO DAILY 06/15/21 [History] Ergocalciferol [Vitamin D2 (1250 Mcg = 09562 Iu)] 1,250 mcg PO FR 06/15/21 [History] Acetaminophen Tab [Tylenol Tab] 1,000 mg PO Q6HR PRN #30 tablet 06/17/21 [Rx] Omeprazole [PriLOSEC] 40 mg PO DAILY #30 cap 06/17/21 [Rx] Ondansetron Odt [Zofran Odt] 4 mg PO Q8HR PRN #9 tab 06/17/21 [Rx] Simethicone 40 mg/0.6 ml Drops [Mylicon Drops] 40 mg PO PCHS PRN #30 ml 06/17/21 [Rx] bisacodyL [Dulcolax] 5 mg PO DAILY PRN #10 tab 06/17/21 [Rx] Follow up Appointment(s)/Referral(s): [facility] [NON-STAFF] - 06/18/21 9:00 am Patient Instructions/Handouts: *Surgery [facility] - Scopalamine Patch Instructions, Juan Carlos-en-Y Gastric Bypass (DC) Activity/Diet/Wound Care/Special Instructions: Liquid diet only for 2 weeks until Jun 30 No lifting over 4 pounds in 4 weeks, Jul 17 May Shower. No soaking in bath tubs for 2 weeks, until Jun 30 Please notify your surgeon if you develop nausea and vomiting including new onset of abdominal pain. Continue to use incentive spirometry to prevent pneumonias. Please continue to ambulate at home to prevent blood clots in legs. Follow-up at the bariatric center. May shower. Dressings to be discontinued by surgeon in the office. Drink 64 oz of fluid daily. Start protein shakes on . Notify bariatric center for temp over 101.0, increased pain, drainage from incisions. No straws or carbonated beverages. Liquid diet only. Sugar content should be less than 6 g to avoid dumping syndrome. Take MOM for constipation. CRUSH, OPEN, OR CUT TABLETS LARGER THAN A SIZE OF A TIC TAC Discharge Disposition: HOME SELF-CARE
[2021-06-17 14:39] VITALS: BP 135/79; PULSE 69; RESP 18; TEMP 97.9
[2021-06-18] MEDS ORDERED: bisacodyL 5 MG TABLET.DR PO PRN (08:00)
== END 2021-06-17 16:07 | disposition home or self-care (01) | DRG 621 ==
LOC: 2ORMAIN 11:19 → 4SSUR 18:44
PROVIDERS: ADMIT Surgery Plastic and Reconstructive Surgery; ATTEND Surgery Plastic and Reconstructive Surgery
PROC: 0DJ08ZZ Inspection of Upper Intestinal Tract, Via Natural or Artificial Opening Endoscopic (ICD-10-PCS; 2021-06-16)
PROC: 8E0W4CZ Robotic Assisted Procedure of Trunk Region, Percutaneous Endoscopic Approach (ICD-10-PCS; 2021-06-16)
PROC: 0D164ZA Bypass Stomach to Jejunum, Percutaneous Endoscopic Approach (ICD-10-PCS; principal; 2021-06-16 13:00)
DX: E66.01 Morbid (severe) obesity due to excess calories (principal); E78.5 Hyperlipidemia, unspecified; F32.A Depression, unspecified; G47.33 Obstructive sleep apnea (adult) (pediatric); Z20.822 Contact with and (suspected) exposure to COVID-19; H54.7 Unspecified visual loss; I11.9 Hypertensive heart disease without heart failure; K21.9 Gastro-esophageal reflux disease without esophagitis; K76.0 Fatty (change of) liver, not elsewhere classified; M16.0 Bilateral primary osteoarthritis of hip; M17.0 Bilateral primary osteoarthritis of knee; Z68.44 Body mass index [BMI] 60.0-69.9, adult; Z79.4 Long term (current) use of insulin; E11.9 Type 2 diabetes mellitus without complications; Z79.84 Long term (current) use of oral hypoglycemic drugs; Z79.899 Other long term (current) drug therapy; M25.561 Pain in right knee; M25.562 Pain in left knee; M54.9 Dorsalgia, unspecified
CPT/HCPCS: 36415; 80051; 80053; 82310; 82565; 83036; 83735; 84100; 84520; 85025; 86850; 86900; 86901; 87635; 94640

== ENCOUNTER 2022-12-13 01:32 | Emergency (ER) | payer MEDICARE, OTHER ==
[2022-12-13 01:50] VITALS: RESP 18
[2022-12-13] MEDS ORDERED: SULFAMETHOX-TMP 800-160MG 1 EACH TAB PO STA (02:06)
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
--- NOTE | 2022-12-13 03:49 | XR ---
EXAM: XR Left Shoulder Complete, 2 or More Views CLINICAL HISTORY: ITS.REASON XR Reason: Left shoulder pain TECHNIQUE: Two or more views of the left shoulder. COMPARISON: No relevant prior studies available. FINDINGS: Bones/joints: No acute fracture. No dislocation. Mild AC joint osteoarthrosis. Soft tissues: Unremarkable. IMPRESSION: No acute osseous abnormalities.
[2022-12-13 04:11] VITALS: BP 138/86; PULSE 66; TEMP 98.4
== END 2022-12-13 04:10 | disposition home or self-care (01) ==
LOC: SUPCPDRO 01:32 → EC 01:32
DX: M19.012 Primary osteoarthritis, left shoulder (principal); N61.1 Abscess of the breast and nipple; E11.9 Type 2 diabetes mellitus without complications; I10 Essential (primary) hypertension; Z79.899 Other long term (current) drug therapy; Z91.030 Bee allergy status; Z91.018 Allergy to other foods
CPT/HCPCS: 99283

== ENCOUNTER 2022-12-21 15:51 | Inpatient (IN) | payer MEDICARE, OTHER ==
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
[2022-12-21] MEDS ORDERED: VANCOMYCIN IV PER PHARMACY 1 EACH MISC MISCELLANE PRN (16:55)
[2022-12-21] MEDS ORDERED: VANCOMYCIN 2,500 MG in SODIUM CHLORIDE 0.9% 500 ML 500 ML IVPB STA (17:00)
[2022-12-21 17:36] LABS: Basophils % (A) 0 %; Eosinophils # (A) 0.5 k/uL (0-0.7); Eosinophils % (A) 5 %; HCT 44.1 % (39.0-53.0); HGB 14.4 gm/dL (13.0-17.5); Lymphocytes % (A) 21 %; MCH 27.6 pg (25.0-35.0); MCHC 32.7 g/dL (31.0-37.0); MCV 84.3 fL (80.0-100.0); Mean Platelet Volume 7.9; Monocytes # (A) 0.6 k/uL (0-1.0); Monocytes % (A) 6 %; Neutrophils # (A) 6.4 k/uL (1.3-7.7); Neutrophils % (A) 67 %; Platelet Count 306 k/uL (150-450); RBC 5.23 m/uL (4.30-5.90); RDW 12.6 % (11.5-15.5); WBC 9.5 k/uL (3.8-10.6)
[2022-12-21] MEDS ORDERED: SODIUM CHLORIDE 0.9% 1,000 ML IV ONE (17:54)
[2022-12-21 18:57] LABS: ALT 31 U/L (4-49); AST 33 U/L (17-59); African American GFR (CKD) >90 (>60 ml/min/1.73 sqM); Albumin 3.4 g/dL (3.5-5.0); Alkaline Phosphatase 59 U/L (38-126); Anion Gap 7 mmol/L; Blood Urea Nitrogen 12 mg/dL (9-20); C Reactive Protein 3.7 mg/dL (<1.0); Calcium 8.2 mg/dL (8.4-10.2); Carbon Dioxide 24 mmol/L (22-30); Chloride 106 mmol/L (98-107); Glucose 97 mg/dL (74-99); Non-African American GFR(CKD) 84 (>60 ml/min/1.73 sqM); Potassium 4.6 mmol/L (3.5-5.1); Sodium 137 mmol/L (137-145); Total Protein 6.4 g/dL (6.3-8.2)
--- NOTE | 2022-12-21 19:03 | CT ---
EXAMINATION TYPE: CT chest wo con CT DLP: 1118.6 mGycm, Automated exposure control for dose reduction was used. DATE OF EXAM: 12/21/2022 6:46 PM COMPARISON: None CLINICAL INDICATION:Male, 47 years old with history of Left chest wall mass; PHH, mass to left side o f chest TECHNIQUE: Multiple axial images were obtained through the chest without IV contrast. Lack of IV or o ral contrast limits evaluation of solid and hollow organ viscera. . Coronal and sagittal reformats re viewed. FINDINGS: LUNGS/ PLEURA: No pleural effusion, pneumothorax, or focal consolidation. No suspicious pulmonary nod ule or mass. AIRWAY: Patent and unremarkable.. HEART: Size within normal limits. . MEDIASTINUM: No gross evidence of adenopathy. VASCULATURE: No aortic aneurysm. MUSCULOSKELETAL: No acute osseous abnormalities. Prominent osteophyte laterally at T8-T9. SOFT TISSUES/LYMPH NODES: Bilateral gynecomastia. Few subcentimeter bilateral axillary lymph nodes id entified. Left lateral chest wall skin thickening with skin thickening and surrounding fat stranding measuring 3.1 x 5.2 cm. No internal gas identified. LOWER NECK: No significant findings. UPPER ABDOMEN: Postsurgical changes from gastric bypass. IMPRESSION: Left lateral chest wall 5.2 cm density with attenuation consistent with fluid. There is surrounding f at stranding identified. Findings may represent an abscess versus cystic lesion versus seroma versus hematoma. Clinical correlation is recommended. Consider further evaluation with ultrasound.
[2022-12-22] MEDS ORDERED: VANCOMYCIN 2,250 MG in SODIUM CHLORIDE 0.9% 500 ML 500 ML IVPB SCH (06:00)
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
[2022-12-22 14:38] VITALS: BP 133/83; PULSE 54; RESP 15; TEMP 98.6
[2022-12-22] MEDS ORDERED: DEXAMETHASONE SOD PHOSPHATE 4 MG/ML 1 ML VIAL IV ONE (16:46)
[2022-12-22] MEDS ORDERED: ONDANSETRON 4 MG/2 ML VIAL IVP ONE (16:46)
[2022-12-22] MEDS ORDERED: LACTATED RINGERS 1,000 ML IV SCH (17:00)
--- NOTE | 2022-12-22 17:39 | P.DS ---
Providers Date of admission: 12/21/22 17:54 Expected date of discharge: 12/22/22 Attending physician: Ceci Ballard Consults: 12/21/22 17:54 Consult Physician Urgent Consulting Provider: Paual Naylor Consult Reason/Comments: Chest wall abscess Do you want consulting provider notified?: Yes Primary care physician: Shailesh Schuster MD Hospital Course: ASSESSMENT: 1. Failed outpatient management, left chest wall abscess/cellulitis 2. Morbid obesity due to excess calories, Body mass index of 65.2 to 44.0 3. Osteoarthritis of the knees. 4. Osteoarthritis of the lower back. 5. Hypertensive heart disease. 6. Obstructive sleep apnea 7. Diabetes type 2, insulin dependent, resolved 8. Gastroesophageal reflux disease 9. Osteoarthritis of the hips 10. Depressive disorder 11. Hepatomegaly 12. Fatty liver disease 13. Status post gastric bypass COURSE: The patient is a 47-year-old male who presents with 1 week history of growing mass of the left chest wall. He had gone to the emergency room 1 week ago, placed on Keflex and Bactrim. Patient then presented back to the emergency room as a symptoms grew worse with mass greater than the size of a small orange. Despite outpatient antibiotics, symptoms continued to worsen. Patient was admitted for IV antibiotics including incision and drainage. I was notified by the nurse, patient left AGAINST MEDICAL ADVICE. Patient Condition at Discharge: Undetermined Plan - Discharge Summary Discharge Rx Participant: Yes New Discharge Prescriptions: No Action oxyCODONE-APAP 10-325MG [Percocet 10-325 mg] 1 tab PO TID PRN PRN Reason: Pain Loratadine [Claritin] 10 mg PO DAILY Ergocalciferol [Vitamin D2 (1250 Mcg = 73822 Iu)] 1,250 mcg PO FR Sulfamethox-Tmp 800-160Mg [Bactrim DS 800-160 mg] 1 tab PO Q12HR 10 Days #20 tab Lisinopril-Hctz 20-12.5 mg [Zestoretic 20-12.5] 1 tab PO DAILY Omeprazole 20 mg PO DAILY Cephalexin [Keflex] 500 mg PO Q6HR 10 Days #40 cap Discharge Medication List Loratadine [Claritin] 10 mg PO DAILY 05/20/20 [History] oxyCODONE-APAP 10-325MG [Percocet 10-325 mg] 1 tab PO TID PRN 05/20/20 [History] Ergocalciferol [Vitamin D2 (1250 Mcg = 97273 Iu)] 1,250 mcg PO FR 06/15/21 [History] Cephalexin [Keflex] 500 mg PO Q6HR 10 Days #40 cap 12/13/22 [Rx] Sulfamethox-Tmp 800-160Mg [Bactrim DS 800-160 mg] 1 tab PO Q12HR 10 Days #20 tab 12/13/22 [Rx] Lisinopril-Hctz 20-12.5 mg [Zestoretic 20-12.5] 1 tab PO DAILY 12/21/22 [History] Omeprazole 20 mg PO DAILY 12/21/22 [History] Follow up Appointment(s)/Referral(s): Shailesh Schuster MD [Primary Care Provider] - 1-2 days Discharge Disposition: LEFT AGAINST MEDICAL ADVICE
[2022-12-23] MEDS ORDERED: HYDROmorphone 0.5 MG/0.5 ML SYRINGE IVP PRN (07:00)
== END 2022-12-22 17:16 | disposition left against medical advice (07) | DRG 603 ==
LOC: EC 15:51 → 4SSUR 17:54
PROVIDERS: ADMIT Surgery Plastic and Reconstructive Surgery; ATTEND Surgery Plastic and Reconstructive Surgery
DX: L02.213 Cutaneous abscess of chest wall (principal); Z68.41 Body mass index [BMI] 40.0-44.9, adult; E66.01 Morbid (severe) obesity due to excess calories; F32.A Depression, unspecified; G47.33 Obstructive sleep apnea (adult) (pediatric); I11.9 Hypertensive heart disease without heart failure; K21.9 Gastro-esophageal reflux disease without esophagitis; K76.0 Fatty (change of) liver, not elsewhere classified; M17.0 Bilateral primary osteoarthritis of knee; M16.0 Bilateral primary osteoarthritis of hip; L03.313 Cellulitis of chest wall; Z53.29 Procedure and treatment not carried out because of patient's decision for other reasons; Z98.84 Bariatric surgery status; Z28.310 Unvaccinated for COVID-19; Z28.21 Immunization not carried out because of patient refusal; Z91.030 Bee allergy status; Z91.018 Allergy to other foods; Z86.39 Personal history of other endocrine, nutritional and metabolic disease
CPT/HCPCS: 36415; 71250; 80053; 83605; 85025; 86140; 87040; 87070; 87075; 87205; 96365; 96366; 99285

== ENCOUNTER → 2023-04-26 | Outpatient (CLI) | payer MEDICARE, OTHER ==
--- NOTE | 2023-04-27 12:57 | MR ---
EXAMINATION TYPE: MR shoulder LT wo con DATE OF EXAM: 04/26/2023 COMPARISON: Left shoulder x-ray December 13, 2022 HISTORY: Left shoulder pain for months, decreased ROM, no trauma. TECHNIQUE: Multiplanar, multisequence imaging of the left shoulder is performed without contrast. FINDINGS: Rotator Cuff: Increased signal involving distal supraspinatus and infraspinatus tendons. Subscapulari s tendon intact. Rotator cuff muscle bulk preserved. Acromioclavicular Joint: Mild to moderate narrowing with mild spurring. Fairly moderate capsular hype rtrophy. Loss of underlying fat plane coronal images 19 and sagittal image 15. Glenohumeral Joint: Small to moderate size joint effusion. No significant spurring. Some narrowing is present. Labrum: Superior labrum shows increased signal coronal images 18 and 19 suggesting tearing. Biceps Tendon: The long head of biceps is in normal location within bicipital groove. Bone marrow signal: Heterogeneity consistent with red marrow reconversion. No suspicious edema. Other: No additional significant abnormality is appreciated. IMPRESSION: 1. Some tendinosis of the supraspinatus and infraspinatus tendons. 2. Superior labral tear. 3. Degenerative changes as detailed above. Underlying impingement is suspected. Correlate clinically.
== END | disposition home or self-care (01) ==
LOC: RADMRIMAIN 17:44
PROVIDERS: ATTEND Internal Medicine
DX: M75.112 Incomplete rotator cuff tear or rupture of left shoulder, not specified as traumatic (principal); M67.814 Other specified disorders of tendon, left shoulder; M19.012 Primary osteoarthritis, left shoulder

== ENCOUNTER → 2024-06-27 | Outpatient (CLI) | payer MEDICARE, OTHER ==
--- NOTE | 2024-06-27 15:49 | XR ---
EXAMINATION TYPE: XR lumbar spine 3V, XR Hip Bilateral 2V Complete DATE OF EXAM: 06/27/2024 12:01 PM COMPARISON: None CLINICAL INDICATION: Male, 48 years old with history of M54.50 chronic back pain, , FINDINGS: Lumbar spine: 5 lumbar type vertebral bodies. Mild multilevel degenerative disc disease with disc space narrowing and disc bulging. Facet arthropathy lower lumbar spine. Trace grade 1 retrolisthesis L3-L4 and L4-L 5. Vertebral body heights are preserved. Hips: Moderate degenerative change at both hips with axial joint space narrowing, subchondral sclerosis, an d marginal scarring. No acute fracture, subluxation, dislocation. IMPRESSION: 1. Lumbar spine: Hypertrophic facet arthropathy mid to lower lumbar spine. Trace retrolisthesis L3-L4 and L4-L5. Mild multilevel degenerative disc disease. No vertebral compression collapse. 2. Bilateral hips: Moderate bilateral hip OA. No acute osseous abnormality seen. [facility], Workstation: [facility], 06/27/2024 3:46 PM
== END | disposition home or self-care (01) ==
LOC: RADXRMAIN 11:29
PROVIDERS: ATTEND Chiropractor
DX: M51.360 Other intervertebral disc degeneration, lumbar region with discogenic back pain only (principal); M25.851 Other specified joint disorders, right hip; M25.551 Pain in right hip; M16.0 Bilateral primary osteoarthritis of hip; M47.816 Spondylosis without myelopathy or radiculopathy, lumbar region
CPT/HCPCS: 72100; 73521

== ENCOUNTER → 2024-08-14 | Outpatient (CLI) | payer MEDICARE, OTHER ==
[2024-08-14 15:53] VITALS: BP 147/78; PULSE 63; RESP 16; TEMP 98.1; BMI 48.4
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
== END ==
LOC: BARWHC3 14:55
PROVIDERS: ATTEND Surgery Plastic and Reconstructive Surgery
DX: E66.01 Morbid (severe) obesity due to excess calories (principal); Z68.42 Body mass index [BMI] 45.0-49.9, adult; Z91.030 Bee allergy status; Z91.018 Allergy to other foods
CPT/HCPCS: 99211

== ENCOUNTER → 2024-08-19 | Outpatient (CLI) | payer MEDICARE, OTHER ==
[2024-08-19 13:05] VITALS: BP 133/79; PULSE 62; RESP 17; TEMP 96.8
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
== END ==
LOC: PNWHC3 12:45
PROVIDERS: ATTEND Specialist
DX: M43.16 Spondylolisthesis, lumbar region (principal); M17.12 Unilateral primary osteoarthritis, left knee; Z91.030 Bee allergy status; Z91.018 Allergy to other foods
CPT/HCPCS: 99202